=== PATIENT | female | born 1965 | race Caucasian/White ===

== ENCOUNTER → 2018-01-14 | Outpatient (CLI) | payer OTHER ==
--- NOTE | 2018-01-14 12:34 | KCIC ---
Bilateral digital screening mammograms: Reason for examination: Routine screening. Comparison is made to previous studies dated 10/08/2015 and 09/07/2014. Interpretation was made with the benefit of CAD. The skin and nipples show no abnormalities. No abnormal axillary lymph nodes are seen. The breast parenchyma is heterogeneously dense. (Breast density: Category C.) There appears to be a new focus of nodular parenchymal asymmetry in the subareolar 6:00 B position of the left breast. Further evaluation with coned compression views and ultrasound is recommended. There are no other dominant masses, suspicious calcifications or architectural distortion. Impression: Nodular focus of asymmetric parenchyma in the subareolar 6:00 B position of the left breast. Recommend further evaluation with coned compression views and ultrasound. Your patient's mammogram demonstrates that she has dense breast tissue (breast density category C or D), which could hide abnormalities, and if she has other risk factors for breast cancer that have been identified, she might benefit from supplemental screening tests that may be suggested by you as her ordering physician. Dense breast tissue, in and of itself, is a relatively common condition. Therefore, this information is not provided to cause undue concern, but rather to raise your awareness and to promote discussion with your patient regarding the presence of other risk factors, in addition to dense breast tissue. Your patient's mammography results will be sent to her. BI-RAD Category 0: Incomplete. Needs additional imaging evaluation. "Our facility is accredited by the [employer] Mammography [employer]." This patient's information has been entered into a reminder system for the patient to be notified with the results of her examination and a target date for the next mammogram. Electronically signed by: Cindy Estrada MD (01/14/2018 12:31 PM) [facility]
== END | disposition home or self-care (01) ==
LOC: KCIC MAMMO 10:38
PROVIDERS: ATTEND Nurse Practitioner
DX: Z12.31 Encounter for screening mammogram for malignant neoplasm of breast (principal)
CPT/HCPCS: 77067

== ENCOUNTER → 2018-01-15 | Outpatient (CLI) | payer OTHER ==
--- NOTE | 2018-01-15 14:09 | KCIC ---
Left breast diagnostic digital mammogram: Reason for examination: Abnormality on screening mammogram. Comparison is made to mammographic exam dated 01/14/2018. Coned compression views were obtained in CC and lateral like projections. Nodular tissue asymmetry persists at the 6:00 position centrally. Further evaluation with ultrasound will follow. IMPRESSION: Small tissue asymmetry persists at the 6:00 position centrally. Ultrasound to follow. BI-RADS Category 0: Incomplete. Needs additional imaging evaluation. Left breast ultrasound: Ultrasound examination of the left breast was performed in the area of mammographic concern and at the left axilla and retroareolar position. In the 6:00 position 3 cm from the nipple, there is a hypoechoic irregularly marginated 5.4 mm nodule present. Small malignancy cannot be excluded and biopsy is recommended. In the 6:00 position 1 cm from the nipple, there is a 3.9 mm hypoechoic fibrocystic type lesion. There is some ductal ectasia in the retroareolar 6:00 position. No abnormal appearing lymph nodes are seen in the axilla. IMPRESSION: 5.4 mm nodule in the 6:00 position 3 cm from the nipple with irregular margination. Cannot be excluded and ultrasound-guided biopsy is recommended. BI-RADS Category 4: Suspicious. These findings have been discussed with the patient and the patient's nurse practitioner, Elizabeth Tirado, was notified with this report on 01/15/2018 at 1404. Message was left on her answering machine since the nurse practitioner is not working on Thursday. "Our facility is accredited by the [employer] Mammography [employer]." This patient's information has been entered into a reminder system for the patient to be notified with the results of her examination and a target date for the next mammogram. Electronically signed by: Cindy Estrada MD (01/15/2018 2:06 PM) [facility]
== END | disposition home or self-care (01) ==
LOC: KCIC MAMMO 09:52
PROVIDERS: ATTEND Nurse Practitioner
DX: N63.24 Unspecified lump in the left breast, lower inner quadrant (principal)
CPT/HCPCS: 76641; 77065

== ENCOUNTER → 2018-01-25 | Outpatient (CLI) | payer OTHER ==
[~2018-01-25] MED LIST: LIDOCAINE 1%/EPI 1:100,000 20 ML VIAL. INJ ONE
--- NOTE | 2018-01-26 14:08 | PATHOLOGY ---
[facility] Accession Number: [id number] . 01 Material submitted: . LEFT BREAST TISSUE . 01 Clinical history: . Left breast mass 6:00 . 02 Diagnosis: Breast tissue, left breast mass 6:00 needle biopsies: - Stromal fibrosis with focal mild duct ectasia and focal mild lobular chronic inflammation. (JPM:milind; 01/26/2018) QMS/01/26/2018 . 02 Comment: There is no evidence of malignancy. . 02 Electronically signed: . Elgin Escalante MD, Pathologist NPI- [id number] . 01 Gross description: . The specimen is received in formalin, labeled "Shanell Broderick, left breast 6:00" and consists of multiple needle cores of yellow-che tissue measuring between 0.5 cm and 2.0 cm in length and ranging from 0.2-0.3 cm in diameter. They are entirely submitted in A1-A3. The cold ischemic time is 3 minutes and the total formalin fixation time is greater than 6 hours, but less than 72 hours. (SDY; 01/25/2018) SYU/SYU . 02 Pathologist provided ICD-10: N60.32, N60.42, N61.0 . 02 CPT . 192288 Specimen Comment: A courtesy copy of this report has been sent to Specimen Comment: [phone], . Specimen Comment: Report sent to / DR SCHULER Performed at: [facility] [address], [place] [id number] MD Salvatore Loo MD Phone: [phone] Performed at: [facility] [address] [place], [place] [id number] MD Elgin Escalante MD Phone: [phone]
--- NOTE | 2018-01-27 08:42 | RAD ---
Ultrasound-guided left breast biopsy, 01/25/2018: History: Suspicious breast nodule A previous ultrasound exam demonstrated a vague hypoechoic process at the 6:00 location in the left breast. Under local anesthesia, aseptic conditions and sonographic guidance the NewAer biopsy instrument was passed into this process via a lateral approach. Multiple 12-gauge vacuum-assisted core samples were obtained. A biopsy marker was deposited at the biopsy site. The biopsy instrument was then removed and hemostasis obtained. Two-view postprocedural digital mammograms were then obtained to document position of the biopsy marker. There is streaky increased density at the biopsy site compatible with a small amount of postbiopsy hemorrhage. The patient tolerated the procedure well and left the department in good condition. The subsequent pathology report indicated the presence of stromal fibrosis and chronic inflammation with no evidence of malignancy. Mammographic and sonographic surveillance beginning in 6 months is suggested. BI-RADS 3-probably benign findings
== END | disposition home or self-care (01) ==
LOC: US 09:39
PROVIDERS: ATTEND Nurse Practitioner
DX: N60.12 Diffuse cystic mastopathy of left breast (principal); N60.42 Mammary duct ectasia of left breast
CPT/HCPCS: 19083; 77065; 88305; C1713; 19085; 76942